=== PATIENT | male | born 1990 | race Caucasian/White ===

== ENCOUNTER → 2019-10-04 | Emergency (ER) | payer OTHER ==
[~2019-10-04] VITALS: Ht 180.3 cm; Wt 74.8 kg
== END | disposition home or self-care (01) ==
LOC: ER 21:49
DX: S90.852A Superficial foreign body, left foot, initial encounter (principal); W45.8XXA Other foreign body or object entering through skin, initial encounter; Y93.89 Activity, other specified; Y92.89 Other specified places as the place of occurrence of the external cause; Y99.8 Other external cause status